=== PATIENT | male | born 1950 | race Caucasian/White ===

== ENCOUNTER → 2018-09-15 | Outpatient (CLI) | payer MEDICARE | END | disposition home or self-care (01) | LOC: SHCH 11:07 | PROVIDERS: ATTEND Internal Medicine Cardiovascular Disease | DX: I65.23 Occlusion and stenosis of bilateral carotid arteries (principal) | CPT/HCPCS: 93880 ==

== ENCOUNTER → 2019-11-08 | Outpatient (CLI) | payer OTHER | END | disposition home or self-care (01) | LOC: RAH 10:19 | PROVIDERS: ATTEND Internal Medicine Cardiovascular Disease | DX: Z13.6 Encounter for screening for cardiovascular disorders (principal) | CPT/HCPCS: 75571 ==

== ENCOUNTER → 2019-12-03 | Outpatient (CLI) | payer MEDICARE ==
[~2019-12-03] MED LIST: REGADENOSON 0.4 MG/5 ML PF SYG IVP SCH
== END | disposition home or self-care (01) ==
LOC: SHCH 08:13
PROVIDERS: ATTEND Internal Medicine Cardiovascular Disease
DX: I25.10 Atherosclerotic heart disease of native coronary artery without angina pectoris (principal)
CPT/HCPCS: 78452; 93017; 96374; A9500 ×2; J2785

== ENCOUNTER → 2020-12-06 | Outpatient (CLI) | payer MEDICARE | END | disposition home or self-care (01) | LOC: SHCH 11:16 | PROVIDERS: ATTEND Internal Medicine Cardiovascular Disease | DX: I70.293 Other atherosclerosis of native arteries of extremities, bilateral legs (principal) | CPT/HCPCS: 93925 ==

== ENCOUNTER → 2022-02-06 | Outpatient (CLI) | payer OTHER | END | disposition home or self-care (01) | LOC: RAH 13:05 | PROVIDERS: ATTEND Internal Medicine Cardiovascular Disease | DX: Z13.6 Encounter for screening for cardiovascular disorders (principal); I51.5 Myocardial degeneration | CPT/HCPCS: 75571 ==

== ENCOUNTER 2022-07-22 06:49 | Day surgery (SDC) | payer MEDICARE ==
[2022-07-18 11:33] LABS: BASOPHILS % (AUTO) 1.1 % (0.0-5.0); HEMATOCRIT 41.4 % (42-54); LYMPHOCYTES % (AUTO) 24.4 % (21.0-51.0); MEAN CORPUSCULAR HEMOGLOBIN 29.7 pg (27.0-33.0); MEAN CORPUSCULAR HGB CONC 34.1 g/dL (32.0-36.0); MEAN CORPUSCULAR VOLUME 87.2 fL (79-99); MONOCYTES % (AUTO) 6.1 % (3.0-13.0); NEUTROPHILS % (AUTO) 65.1 % (40.0-77.0); PLATELET COUNT (AUTO) 228 K/uL (130-400); RED BLOOD CELL COUNT(AUTO) 4.75 MIL/uL (4.50-6.20); RED CELL DISTRIBUTION WIDTH 13.2 % (11.0-15.5); WHITE BLOOD COUNT (AUTO) 6.4 K/uL (4.8-10.8)
[2022-07-18 11:57] LABS: CREATININE 1.3 mg/dL (0.5-1.5); POTASSIUM 4.4 mmol/L (3.5-5.1)
[2022-07-18 12:03] LABS: INR 0.95 (0.85-1.15); PROTHROMBIN TIME 10.4 SEC (9.6-11.6)
[2022-07-18 12:05] LABS: PARTIAL THROMBOPLASTIN TIME 25.5 SEC (26.3-35.5)
[2022-07-18 12:20] LABS: APPEARANCE,URINE CLEAR (CLEAR); BILIRUBIN,URINE NEGATIVE (NEGATIVE); COLOR,URINE LIGHT-YELLOW (YELLOW); GLUCOSE, URINE (UA) >=1000 mg/dL (NEGATIVE); KETONES,URINE NEGATIVE (NEGATIVE); LEUKOCYTE ESTERASE ,URINE NEGATIVE Leu/uL (NEGATIVE); NITRATE,URINE NEGATIVE (NEGATIVE); OCCULT BLOOD,URINE NEGATIVE (NEGATIVE); PH,URINE 5.5 (5.0-8.0); PROTEIN,URINE 20 mg/dL (NEGATIVE); UROBILINOGEN,URINE 0.2 mg/dL (0.2-1.0)
[2022-07-18 12:28] LABS: MUCUS,URINE RARE LPF (None Seen); RBC,URINE 0-1 /HPF (0-1)
[2022-07-18 12:29] LABS: B-TYPE NATRIURETIC PEPTIDE 9 pg/mL (0-100)
[2022-07-18 14:25] VITALS: BP 157/83
[~2022-07-22] VITALS: Ht 177.8 cm; Wt 92.0 kg
[2022-07-22] VITALS (11 sets, daily range): BP systolic 118–178; BP diastolic 49–112
[~2022-07-22 06:49] MED LIST changes: +AEC81 PO; +AMLO1CAP PO; +ATOR40TA69 PO; +LEVO25TA54 PO; +METF-444 PO; +METO-408 PO; -REGADENOSON 0.4 MG/5 ML PF SYG IVP SCH; +SEMA1PEN3 SQ
[2022-07-22] MEDS ORDERED: 0.9%NACL 1000ML 1,000 ML IV ONE (07:23)
[2022-07-22] MEDS ORDERED: IOHEXOL 350 MG/ML 100ML INFUS..BTL IV ONE (08:15)
[2022-07-22] MEDS ORDERED: HEPARIN 10,000 UNIT/10ML (1,000 UNIT/ML) VIAL ONE (08:15)
[2022-07-22] MEDS ORDERED: MEPERIDINE-PF 25 MG/ML SYG ONE ×2 (08:15→08:48)
[2022-07-22] MEDS ORDERED: IOHEXOL-350 50ML VIAL IV ONE (08:15)
[2022-07-22] MEDS ORDERED: NITROGLYCERIN 50MG VIAL ONE (08:15)
[2022-07-22] MEDS ORDERED: MIDAZOLAM HCL 1 MG/ML 2ML VIAL ONE ×2 (08:16→08:48)
[2022-07-22] MEDS ORDERED: LIDOCAINE HCL 400MG/20ML VIAL ONE (08:16)
[2022-07-22] MEDS ORDERED: SODIUM BICARB 50MEQ 50ML VIAL 50 ML ONE (08:36)
[2022-07-22] MEDS ORDERED: CLOPIDOGREL 300MG TAB ONE (09:18)
[2022-07-22] MEDS ORDERED: 0.9%NACL 1000ML 1,000 ML IV SCH (09:30)
[2022-07-22] MEDS ORDERED: AMLODIPINE 5 MG TAB PO SCH (12:30)
== END 2022-07-22 14:30 | disposition home or self-care (01) ==
LOC: DAH 06:49
PROVIDERS: ATTEND Internal Medicine Cardiovascular Disease
DX: I25.119 Atherosclerotic heart disease of native coronary artery with unspecified angina pectoris (principal); E11.22 Type 2 diabetes mellitus with diabetic chronic kidney disease; I12.9 Hypertensive chronic kidney disease with stage 1 through stage 4 chronic kidney disease, or unspecified chronic kidney disease; N18.30 Chronic kidney disease, stage 3 unspecified; E11.51 Type 2 diabetes mellitus with diabetic peripheral angiopathy without gangrene; Z79.84 Long term (current) use of oral hypoglycemic drugs; Z90.49 Acquired absence of other specified parts of digestive tract; Z79.01 Long term (current) use of anticoagulants; Z79.82 Long term (current) use of aspirin; Z79.899 Other long term (current) drug therapy; Z98.890 Other specified postprocedural states
CPT/HCPCS: 80048; 83880; 85025; 85610; 85730; 81001; 36415 ×2; 71045; 93005; 85347; 82948; 93458; C9600; C1769; C1887; C1894; C1760; C1874; C1725; J3490 ×3; J7030; J1644 ×2; J2250; J2175; Q9967; A4215; A4222; A4221; A4663; A4216; A4606; Q9965; A4223 ×3; 96360; 96361; 99156; 99157

== ENCOUNTER 2023-05-05 08:56 | Day surgery (SDC) | payer OTHER ==
[2023-04-30 13:42] LABS: BASOPHILS # (AUTO) 0.06 K/uL (0.00-0.20); EOSINOPHILS % (AUTO) 3.4 % (0.0-8.0); HEMATOCRIT 43.9 % (42-54); IMMATURE GRANULOCYTE ABSOLUTE 0.02 K/uL (0-1); LYMPHOCYTES # (AUTO) 1.7 K/uL (1.0-4.8); LYMPHOCYTES % (AUTO) 29.7 % (21.0-51.0); MEAN CORPUSCULAR HEMOGLOBIN 29.5 pg (27.0-33.0); MEAN CORPUSCULAR HGB CONC 33.5 g/dL (32.0-36.0); MEAN CORPUSCULAR VOLUME 88.2 fL (79-99); MONOCYTES # (AUTO) 0.6 K/uL (0.1-1.0); MONOCYTES % (AUTO) 10.3 % (3.0-13.0); NEUTROPHILS # (AUTO) 3.2 K/uL (1.8-7.7); NEUTROPHILS % (AUTO) 55.3 % (40.0-77.0); PLATELET COUNT (AUTO) 189 K/uL (130-400); RED BLOOD CELL COUNT(AUTO) 4.98 MIL/uL (4.50-6.20); RED CELL DISTRIBUTION WIDTH 13.3 % (11.0-15.5); WHITE BLOOD COUNT (AUTO) 5.9 K/uL (4.8-10.8)
[2023-04-30 13:44] VITALS: BP 129/72; PULSE 53; RESP 18
[2023-04-30 14:01] LABS: CREATININE 1.6 mg/dL (0.5-1.5); POTASSIUM 4.5 mmol/L (3.5-5.1)
[2023-05-02 10:42] VITALS: BP 152/78; PULSE 51; RESP 16
[2023-05-05] VITALS (19 sets, daily range): BP systolic 127–161; BP diastolic 58–76; PULSE 50–147; RESP 12–18
[~2023-05-05] VITALS: Ht 177.8 cm; Wt 91.3 kg
[~2023-05-05 08:56] MED LIST changes: +0.9%NACL 1000ML 1,000 ML IV ONE; +CEFAZOLIN SODIUM 2 GM VIAL ONE; +CLOP75TA32 PO; +INSU3INS3 SQ; -LEVO25TA54 PO; +LEVO88CA4 PO; -SEMA1PEN3 SQ
[2023-05-05] MEDS ORDERED: 0.9%NACL 1000ML 1,000 ML IV ONE (09:53)
[2023-05-05] MEDS ORDERED: CEFTRIAXONE 1G VIAL ONE (09:53)
[2023-05-05] MEDS ORDERED: INSULIN HUMULIN R 100 UNIT/ML 3ML ONE (10:19)
[2023-05-05] MEDS ORDERED: DEXAMETHASONE SOD PHOSPHATE 10MG/ML 1ML VIAL ONE (13:26)
[2023-05-05] MEDS ORDERED: SUCCINYLCHOLINE 200MG/10ML SYR ONE (13:26)
[2023-05-05] MEDS ORDERED: FENTANYL CITRATE PF 50 MCG/1 ML 2ML VIAL ONE ×2 (13:26→15:17)
[2023-05-05] MEDS ORDERED: ROCURONIUM 10MG/1ML SYR 10 MG/ML ML ONE (13:26)
[2023-05-05] MEDS ORDERED: LIDOCAINE PF 100MG/5ML (2%) SYRINGE 5ML ONE (13:26)
[2023-05-05] MEDS ORDERED: ONDANSETRON 4MG INJ ONE (13:26)
[2023-05-05] MEDS ORDERED: PROPOFOL 10 MG/ML 20ML VIAL IV ONE (13:26)
[2023-05-05] MEDS ORDERED: CEFTRIAXONE 1G VIAL IVPB ONE (14:37)
[2023-05-05] MEDS ORDERED: NEOSTIGMINE 5MG/5ML SYR IV ONE (14:47)
[2023-05-05] MEDS ORDERED: GLYCOPYRROLATE 1 MG/5 ML SYRINGE ONE (14:47)
[2023-05-05] MEDS ORDERED: EPHEDRINE SULFATE 50 MG/ML AMPULE ONE (14:59)
[2023-05-05] MEDS ORDERED: PHENAZOPYRIDINE HCL 200 MG TABLET ONE (16:24)
== END 2023-05-05 17:36 | disposition home or self-care (01) ==
LOC: DAH 08:56
PROVIDERS: ATTEND Urology
DX: C67.2 Malignant neoplasm of lateral wall of bladder (principal); N32.89 Other specified disorders of bladder; I83.90 Asymptomatic varicose veins of unspecified lower extremity; N40.0 Benign prostatic hyperplasia without lower urinary tract symptoms; I12.9 Hypertensive chronic kidney disease with stage 1 through stage 4 chronic kidney disease, or unspecified chronic kidney disease; E11.22 Type 2 diabetes mellitus with diabetic chronic kidney disease; N18.9 Chronic kidney disease, unspecified; I25.10 Atherosclerotic heart disease of native coronary artery without angina pectoris; E11.51 Type 2 diabetes mellitus with diabetic peripheral angiopathy without gangrene; G47.30 Sleep apnea, unspecified; Z90.49 Acquired absence of other specified parts of digestive tract; Z90.89 Acquired absence of other organs; Z98.890 Other specified postprocedural states; Z87.891 Personal history of nicotine dependence; Z95.5 Presence of coronary angioplasty implant and graft; Z79.82 Long term (current) use of aspirin; Z79.01 Long term (current) use of anticoagulants; Z79.4 Long term (current) use of insulin; Z79.899 Other long term (current) drug therapy
CPT/HCPCS: 80048; 85025; 36415; 93005; 82948 ×4; 52234; 88305; 88307; 52204; A6260; J7030 ×2; J0690; A4215 ×2; A4223 ×2; A4222 ×2; A4221 ×2; A4663 ×2; J1815; J3010 ×2; J0330; J3490 ×2; J1100; J2710; J2001; J0696 ×2; J2704; J2405; A4358; A4510 ×2; A4600 ×2

== ENCOUNTER → 2024-02-17 | Outpatient (CLI) | payer OTHER ==
[~2024-02-17] MED LIST changes: -0.9%NACL 1000ML 1,000 ML IV ONE; -CEFAZOLIN SODIUM 2 GM VIAL ONE
== END | disposition home or self-care (01) ==
LOC: SHCH 07:59
PROVIDERS: ATTEND Internal Medicine Cardiovascular Disease
DX: I65.23 Occlusion and stenosis of bilateral carotid arteries (principal)
CPT/HCPCS: 93880

== ENCOUNTER → 2024-09-15 | Outpatient (CLI) | payer OTHER ==
--- NOTE | 2024-09-15 09:58 | HMCIMG ---
US AORTA LIMITED REASON: AAA. COMPARISON: None TECHNIQUE: Limited abdominal aorta ultrasound study was performed. FINDINGS: Proximal portion of abdominal aorta measures 1.4 x 2.4 cm, midportion measures 2.3 x 1.5 cm, distal portion measures 1.8 x 1.5 cm. Right common iliac artery measures 10 x 9 mm. Left common iliac artery measures 13 x 12 mm. Atherosclerosis. No evidence of abdominal aortic aneurysm is seen. IMPRESSION: Atherosclerosis. No evidence of abdominal aortic aneurysm is seen.
== END | disposition home or self-care (01) ==
LOC: RAH 08:31
PROVIDERS: ATTEND Internal Medicine Cardiovascular Disease
DX: I70.0 Atherosclerosis of aorta (principal); I71.40 Abdominal aortic aneurysm, without rupture, unspecified
CPT/HCPCS: 76775